=== PATIENT | male | born 2000 | race Caucasian/White ===

== ENCOUNTER 2022-07-03 13:48 | Emergency (ER) | payer OTHER ==
[~2022-07-03] VITALS: Ht 170.2 cm; Wt 72.6 kg
--- NOTE | 2022-07-03 14:00 | NUR ---
Ambulatory pulse ox 97% on RA
[2022-07-03 14:02] VITALS: BP 118/68
[2022-07-03] MEDS ORDERED: BENZ-13 PO (14:12)
--- NOTE | 2022-07-03 14:19 | NUR ---
Patient discharged to home in stable condition. Written and verbal after care instructions given. Patient verbalizes understanding of instruction.
== END 2022-07-03 14:21 | disposition home or self-care (01) ==
LOC: ER 14:08
DX: B34.9 Viral infection, unspecified (principal)